=== PATIENT | male | born 1935 | race Caucasian/White ===

== ENCOUNTER 2017-06-10 14:09 | Inpatient (IN) | payer MEDICARE, OTHER ==
[~2017-06-10 14:09] MED LIST: BUPR100 PO; CARV12 PO; CLOP75 PO; FINA5TAB41 PO; IBUP-2071 PO; LISI1TAB11 PO; MELO-107 PO; SERT50TA12 PO
[2017-06-10 15:35] VITALS: BP 160/76
[2017-06-10 20:21] VITALS: BP 193/85
[2017-06-10 20:25] LABS: HEMATOCRIT 30.7 % (41-53); HEMOGLOBIN 10.4 g/dL (13.5-17.5); MEAN CORPUSCULAR HEMOGLOBIN 32.7 pg (26.0-34.0); MEAN CORPUSCULAR HGB CONC 33.9 G/dL (31.0-37.0); MEAN CORPUSCULAR VOLUME 96 fL (80-100); PLATELET COUNT (AUTO) 189 K/uL (150-450); RED BLOOD CELL COUNT(AUTO) 3.18 MIL/uL (4.50-5.90); RED CELL DISTRIBUTION WIDTH 12.8 % (11.5-14.5)
[2017-06-10 20:32] LABS: TOTAL CELLS COUNTED 100
[2017-06-10 20:39] LABS: PROTHROMBIN TIME 10.7 SEC (9.4-11.6)
[2017-06-10 20:40] LABS: BAND NEUTROPHILS % (MANUAL) 2 % (1-5); LYMPHOCYTES % (MANUAL) 27 % (22-44); REACTIVE LYMPHOCYTES 2 % (0-0)
[2017-06-10] MEDS: CARVEDILOL 12.5 MG TABLET PO SCH (20:40)
[2017-06-10 20:41] LABS: EOSINOPHILS % (MANUAL) 2 % (1-6)
[2017-06-10] MEDS: FINASTERIDE 5 MG TABLET PO SCH (20:41)
[2017-06-10] MEDS: BuPROPion HCL 100 MG TABLET PO SCH (20:41)
[2017-06-10 20:43] LABS: BASOPHILS % (MANUAL) 0 % (0-2); METAMYELOCYTES % 0 % (0-0); MYELOCYTES % 0 % (0-0); PROMYELOCYTES % 0 (0-0); RBC MORPHOLOGY COMMENT NORMAL RBC MORPH
[2017-06-10] MEDS: IBUPROFEN 800 MG TABLET PO SCH (20:45)
[2017-06-10 21:19] LABS: ALANINE AMINOTRANSFERASE 11 U/L (12-78); ALBUMIN 3.4 g/dL (3.4-5.0); ANION GAP 7 mmol/L (8-16); ASPARTATE AMINOTRANSFERASE 11 U/L (15-37); CALCIUM, TOTAL 8.9 mg/dL (8.8-10.5); CARBON DIOXIDE 28 mmol/L (22-29); CHLORIDE 108 mmol/L (98-107); CREATININE 1.91 mg/dL (0.60-1.30); GLOMERULAR FILTR. RATE CALC 34 mL/min (>60); PHOSPHORUS 3.3 mg/dL (2.5-4.9); SODIUM SERUM 143 mmol/L (136-145); THYROID STIMULATING HORMONE 1.16 uIU/mL (0.36-3.74); TOTAL PROTEIN, SERUM 7.1 g/dL (6.4-8.2); UREA NITROGEN, BLOOD 44 mg/dL (7-18)
[2017-06-10 21:52] LABS: BILIRUBIN,TOTAL < 0.1 mg/dL (0.1-1.0)
[2017-06-10 22:53] VITALS: BP 190/84
[2017-06-11] MEDS: LISINOPRIL 20 MG TABLET PO SCH ×2 (00:27→09:00)
[2017-06-11] MEDS: HYDROCHLOROTHIAZIDE 25 MG TABLET PO SCH ×2 (00:28→09:00)
[2017-06-11 04:31] VITALS: BP 156/65
[2017-06-11] MEDS ORDERED: POTASSIUM CHLORIDE 20 MEQ ER TABLET PO PRN (05:30)
[2017-06-11] MEDS ORDERED: MAGNESIUM SULFATE 4 GM/WATER 100 ML IV PRN (05:30)
[2017-06-11] MEDS ORDERED: POTASSIUM CHL 10 MEQ/WATER 50 ML IV PRN (05:30)
[2017-06-11] MEDS ORDERED: MAGNESIUM SULFATE 2 GM in DEXTROSE 5%-WATER 50 ML IV PRN (05:30)
[2017-06-11] MEDS: MAGNESIUM OXIDE 400 MG TABLET PO PRN ×3 (05:49→16:39)
[2017-06-11 07:08] LABS: ALBUMIN 3.1 g/dL (3.4-5.0); THYROID STIMULATING HORMONE 1.01 uIU/mL (0.36-3.74)
[2017-06-11 07:45] VITALS: BP 159/75
[2017-06-11] MEDS: IBUPROFEN 800 MG TABLET PO SCH (08:59)
[2017-06-11] MEDS: SERTRALINE HCL 50 MG TABLET PO SCH (09:00)
[2017-06-11] MEDS: CARVEDILOL 12.5 MG TABLET PO SCH ×2 (09:00→22:32)
[2017-06-11] MEDS: CLOPIDOGREL BISULFATE 75 MG TABLET PO SCH (09:00)
[2017-06-11] MEDS: BuPROPion HCL 100 MG TABLET PO SCH (09:01)
[2017-06-11 11:45] VITALS: BP 155/81
[2017-06-11 15:23] VITALS: BP 147/79
[2017-06-11 19:19] VITALS: BP 150/82
[2017-06-11] MEDS: BuPROPion HCL 100 MG SR TABLET PO SCH (22:31)
[2017-06-11] MEDS: FINASTERIDE 5 MG TABLET PO SCH (22:31)
[2017-06-11 23:19] VITALS: BP 143/78
[2017-06-12 04:38] VITALS: BP 148/86
[2017-06-12 06:51] LABS: BILIRUBIN,TOTAL 0.1 mg/dL (0.1-1.0); CALCIUM, TOTAL 8.5 mg/dL (8.8-10.5); CREATININE 1.68 mg/dL (0.60-1.30); MAGNESIUM 1.7 mg/dL (1.80-2.40); POTASSIUM 4.5 mmol/L (3.5-5.1); TOTAL PROTEIN, SERUM 6.2 g/dL (6.4-8.2)
[2017-06-12 07:45] VITALS: BP 156/76
[2017-06-12 08:07] LABS: PSA % FREE 31.4 %; PSA FREE 0.22 ng/mL
[2017-06-12] MEDS: MAGNESIUM OXIDE 400 MG TABLET PO PRN ×3 (08:10→18:50)
[2017-06-12] MEDS: LISINOPRIL 20 MG TABLET PO SCH ×2 (08:10→19:47)
[2017-06-12] MEDS: BuPROPion HCL 100 MG SR TABLET PO SCH ×2 (08:10→19:47)
[2017-06-12] MEDS: CARVEDILOL 12.5 MG TABLET PO SCH ×2 (08:11→19:47)
[2017-06-12] MEDS: CLOPIDOGREL BISULFATE 75 MG TABLET PO SCH (08:11)
[2017-06-12] MEDS: HYDROCHLOROTHIAZIDE 25 MG TABLET PO SCH (08:11)
[2017-06-12] MEDS: SERTRALINE HCL 50 MG TABLET PO SCH (08:11)
[2017-06-12 11:19] VITALS: BP 157/69
[2017-06-12] MEDS ORDERED: PNEUMOCOCCAL VACCINE POLYVALENT 0.5 ML VIAL [PPSV23] IM ONE (13:00)
[2017-06-12 15:30] VITALS: BP 152/74
[2017-06-12 19:37] VITALS: BP 146/75
[2017-06-12] MEDS: FINASTERIDE 5 MG TABLET PO SCH (19:47)
[2017-06-12 23:50] VITALS: BP 147/72
[2017-06-13 05:30] VITALS: BP 153/71
[2017-06-13 06:52] LABS: CALCIUM, TOTAL 8.7 mg/dL (8.8-10.5); CREATININE 1.83 mg/dL (0.60-1.30); MAGNESIUM 1.8 mg/dL (1.80-2.40); POTASSIUM 4.6 mmol/L (3.5-5.1)
[2017-06-13 07:45] VITALS: BP 144/76
[2017-06-13] MEDS: CLOPIDOGREL BISULFATE 75 MG TABLET PO SCH (08:20)
[2017-06-13] MEDS: BuPROPion HCL 100 MG SR TABLET PO SCH (08:20)
[2017-06-13] MEDS: HYDROCHLOROTHIAZIDE 25 MG TABLET PO SCH (08:20)
[2017-06-13] MEDS: LISINOPRIL 20 MG TABLET PO SCH (08:20)
[2017-06-13] MEDS: SERTRALINE HCL 50 MG TABLET PO SCH (08:21)
[2017-06-13] MEDS: CARVEDILOL 12.5 MG TABLET PO SCH (08:21)
[2017-06-13 11:38] VITALS: BP 146/76
== END 2017-06-13 13:17 | DRG 71 ==
LOC: 6N 14:43
PROVIDERS: ADMIT Internal Medicine; ATTEND Internal Medicine
DX: I67.9 Cerebrovascular disease, unspecified (principal); F33.1 Major depressive disorder, recurrent, moderate; I13.10 Hypertensive heart and chronic kidney disease without heart failure, with stage 1 through stage 4 chronic kidney disease, or unspecified chronic kidney disease; N18.3 Chronic kidney disease, stage 3 (moderate); E83.42 Hypomagnesemia; D63.8 Anemia in other chronic diseases classified elsewhere; R26.9 Unspecified abnormalities of gait and mobility; R15.9 Full incontinence of feces; R79.89 Other specified abnormal findings of blood chemistry; M51.26 Other intervertebral disc displacement, lumbar region; E78.2 Mixed hyperlipidemia; F17.210 Nicotine dependence, cigarettes, uncomplicated; G47.00 Insomnia, unspecified; K21.9 Gastro-esophageal reflux disease without esophagitis; N40.0 Benign prostatic hyperplasia without lower urinary tract symptoms; R29.6 Repeated falls; Z79.899 Other long term (current) drug therapy; Z86.73 Personal history of transient ischemic attack (TIA), and cerebral infarction without residual deficits; Z91.19 Patient's noncompliance with other medical treatment and regimen; Z91.81 History of falling; Z95.0 Presence of cardiac pacemaker; J42 Unspecified chronic bronchitis; J43.9 Emphysema, unspecified; Z28.21 Immunization not carried out because of patient refusal
CPT/HCPCS: 76770; 82570; 82607; 82746; 83540; 83550; 83735; 84100; 84154; 84156; 84300; 84443; 84540; 85007; 97162; 97166; 99285